=== PATIENT | female | born 1980 | race African-American/Black ===

== ENCOUNTER 2016-08-05 20:54 | Observation (INO) ==
[2016-08-05] MEDS ORDERED: NITROGLYCERIN 2% OINT 1 INCH/GM PACK TOP STA (22:06)
[2016-08-05] MEDS ORDERED: MORPHINE 2 MG/1 ML SYRINGE IV STA (22:06)
[2016-08-05] MEDS ORDERED: ALUM/MAG/SIMETH/LIDO VISC 1:1 30 ML BOTTLE PO STA (22:06)
[2016-08-05] MEDS ORDERED: ASPIRIN 325 MG TABLET PO STA (22:06)
[2016-08-05] MEDS ORDERED: ONDANSETRON 4 MG/2 ML VIAL IV STA (22:06)
[2016-08-05] MEDS ORDERED: METOPROLOL TARTRATE 25 MG TABLET PO STA (22:06)
--- NOTE | 2016-08-05 22:11 | EKG Report ---
Stationary ECG Study [facility] ER Test Date: 08/05/2016 9:09:16 PM Pat Name: MAGAN ARITA Department: Room: Gender: F [employer]: : 1980 Requested by: Moisés Graff Order Number: [id number] Jamshid MD: JACQUELINE REAVES Intervals [place] Rate: 99 P: 70 FL: 128 QRS: 31 QRSD: 88 T: 46 QT: 362 QTc: 418 Interpretive Statements SINUS RHYTHM Electronically Signed On 08-06-16 17:07:18 CDT by JACQUELINE REAVES [id number]
[2016-08-05] MEDS ORDERED: METOPROLOL TARTRATE 25 MG TABLET ONE (22:13)
[2016-08-05] MEDS ORDERED: NITROGLYCERIN 2% OINT 1 INCH/GM PACK TOP ONE (22:13)
[2016-08-05] MEDS ORDERED: MORPHINE 2 MG/1 ML SYRINGE ONE (22:14)
[2016-08-05] MEDS ORDERED: ONDANSETRON 4 MG/2 ML VIAL ONE (22:14)
[2016-08-05] MEDS ORDERED: ASPIRIN 325 MG TABLET ONE (22:14)
[2016-08-05] MEDS ORDERED: ALUM/MAG/SIMETH/LIDO VISC 1:1 30 ML BOTTLE PO ONE (22:14)
[2016-08-05 22:15] LABS: Basophils # 0.1 10*3/uL (0.0-0.2); Basophils % 0.5 % (0.0-0.8); Eosinophils # 0.2 10*3/uL (0.0-0.87); Eosinophils % 1.2 % (0.00-10.9); Hematocrit 40.9 VOL% (35.7-47.0); Hemoglobin 14.3 GM/DL (12.0-16.0); Immature Granulocytes % 0.7 %; Lymphocytes # 3.6 10*3/uL (1.4-4.0); Mean Corpuscular Hemoglobin 30 PG (27-34); Mean Corpuscular Volume 86.3 FL (87-102); Mean Platelet Volume 10.2 FL (9.6-12.0); Monocytes # 1.1 10*3/uL (0.11-0.8); Monocytes % 7.4 % (1.7-12.7); Neutrophils # 9.9 10*3/uL (1.4-7.4); Neutrophils % 66.2 % (38.7-73.9); Platelet Count 320 T/CUMM (130-400); Red Blood Count 4.74 MC/CUMM (3.8-5.5); Red Cell Distribution Width 14.9 % (9.3-17.3); White Blood Count 14.9 T/CUMM (4-12)
[2016-08-05 22:23] LABS: D-Dimer <= 0.5 MG/L FEU
[2016-08-05 22:26] LABS: Alanine Aminotransferase 42 U/L (13-56); Albumin 3.3 G/DL (3.4-5.0); Alkaline Phosphatase 66 U/L (45-117); Aspartate Amino Transferase 21 U/L (0-37); Bilirubin,Total < 0.39 MG/DL (0.2-1.0); Blood Urea Nitrogen 7 MG/DL (7-18); Calcium 9.1 MG/DL (8.5-10.1); Glucose 91 MG/DL (74-106); Osmolality,Calculated 276.4 MOS/KG (273-304); Potassium 3.5 MMOL/L (3.5-5.1); Sodium 140 MMOL/L (136-145); Total Protein 6.8 G/DL (6.4-8.3)
[2016-08-05 22:29] LABS: Barbiturates Screen,Urine Negative (Negative); Benzodiazepines Screen,Urine Negative (Negative); Cannabinoid Screen,Urine Negative (Negative); Magnesium 1.9 MG/DL (1.8-2.4); Opiate Screen,Urine Negative (Negative); Phencyclidine Screen,Urine Negative (Negative)
[2016-08-05 22:31] LABS: Apearance,Urine CLEAR (Clear); Bilirubin,Urine Negative (Negative); Blood, Urine Negative (Negative); Glucose,Urine (UA) Negative (Negative); Ketones,Urine Negative (Negative); Mucus,Urine Occasional /LPF (Occasional); Nitrite,Urine Negative (Negative); Protein,Urine Negative; Squamous Epithelial Cell,Urine Occasional /HPF (0-10); Urine Color Yellow (Yellow); Urine Urobilinogen < 2.0 EU/DL (0.2-1.0)
--- NOTE | 2016-08-05 23:24 | Emergency Department Note ---
James Viveros Brittany, am scribing for, and in the presence of, Moisés Jolley MD 22:48. Shola Viveros Charles R, MD, personally performed the services described in this documentation, ascribed by Kira Ramirez in my presence, and it is both accurate and complete 323 . Arrival - Arrival Chief Complaint: Chest Pain Stated Complaint: chest pain/nausea/possible ED Nursing Triage Note: C/C chest pain radiates to bilat arms and into upper back. Started a week ago. Mode of Arrival: Ambulatory Limitations: No Limitations Source: Patient Time Seen by Provider: 08/05/16 21:51 - History of Present Illness HPI Narrative: This is a 36 y/o black female,who presents to the ED with c/o CP which started earlier today. She states the pain has been on and off. She reports she has had CP in the past but this is more intense than the other times. She has taken a Baby ASA for the day. PT has no other complaints/pain in the ED at this time. Pt has a PMhx of Onset (ago): hour(s) (Started today) Consistency: intermittent Severity: moderate Allergies/Adverse Reactions: Allergies Allergy/AdvReac Type Severity Reaction Status Date / Time azithromycin [From Zithromax] Allergy SHORTNESS Verified 08/05/16 21:03 OF BREATH Home Medications: Home Medications Medication Instructions Recorded Confirmed Type Amlodipine/Valsartan [Exforge 1 each PO QAM #30 tablet 03/21/16 Rx 10-320 mg Tablet] Metoprolol Succinate Xl [Toprol Xl] 25 mg PO DAILY #30 tablet 03/21/16 Rx Review of System - Review of System 12 point system: reviewed and no additional remarkable complaints except as stated - Review of System Cardiovascular: Present: chest pain Medical,Surgical,& Family Hx - Medical History Cardio: History of: Hypertension Respiratory: History of: Asthma Musculoskeletal: History of: Musculoskeletal Problems (cyst in foot removed) - Surgical History HEENT Surgeries: Surgical HX of: Tonsilectomy & Adenoidectomy Reproductive Surgeries: Surgical HX of;: Section - Family History Family History: Reports;: Family Heart Disease (Dad from an AK at the age of 26), Family Hypertension - Social History Smoking Status: Current every day smoker Frequency of Alcohol Use: None Type of Drug Use: None Exam Vital Signs: Vital Signs Temperature 97.9 F 08/05/16 20:59 Pulse Rate 107 H 08/05/16 20:59 Respiratory Rate 20 08/05/16 21:50 Blood Pressure 161/106 08/05/16 20:59 O2 Sat by Pulse Oximetry 97 08/05/16 20:59 - General General appearance: alert, in no apparent distress - Head Head exam: Present: atraumatic, normocephalic, normal inspection - Eye Eye exam: Present: normal appearance, PERRL, EOMI. Absent: nystagmus, miosis, mydriasis - ENT ENT exam: Present: normal exam, normal oropharynx, mucous membranes moist, TM's normal bilaterally, normal external ear exam - Neck Neck exam: Present: normal inspection, full ROM, trachea midline. Absent: tenderness, meningismus, lymphadenopathy, thyromegaly - Chest Chest inspection: Present: symmetric chest wall rise, tenderness (Upper Chest tenderness). Absent: rash, abscess - Respiratory Respiratory exam: Present: normal lung sounds bilaterally, rales. Absent: respiratory distress, rhonchi, stridor, wheezes - Cardiovascular Cardiovascular exam: Present: regular rate, normal rhythm, normal heart sounds. Absent: murmur, rubs, gallop, clicks, JVD - Abdominal Exam Abdominal exam: Present: soft, normal bowel sounds. Absent: distention, tenderness, guarding, rebound, rigidity - Rectal Exam Rectal exam: Present: deferred - Extremities Exam Extremities exam: Present: full ROM, normal capillary refill, pedal edema (+1 Lower Extremity edema). Absent: tenderness, joint swelling, calf tenderness - Back Exam Back exam: Present: normal inspection, full ROM. Absent: tenderness, muscle spasm, rashes - Neurological Exam Neurological exam: Present: alert, oriented X3, CN II-XII intact. Absent: motor sensory deficit - Psychiatric Psychiatric exam: Present: normal affect, normal mood, agitated. Absent: anxious, flat affect, manic - Skin Skin exam: Present: warm, dry, intact, normal color. Absent: rash, cyanosis, diaphoresis, erythema, pallor, mottled Course - Consultations Consultation #1: I will contact the hospitalist and speak about admitting patient. Consultation #2: Hospitalist will admit patient Time: 23:24 Results - Labs CBC & BMP: 08/05/16 21:45 08/05/16 21:45 Disposition Clinical Impression: Chest pain, Hypertension Case discussed with: patient Disposition: Still a Patient Condition: Stable Time of Disposition: 23:24
[2016-08-05] MEDS ORDERED: ENOXAPARIN 100 MG/ML SYRINGE SUBCUT STA (23:29)
[2016-08-05] MEDS ORDERED: ENOXAPARIN 100 MG/ML SYRINGE SUBCUT ONE (23:32)
--- NOTE | 2016-08-06 00:31 | Hospitalist History & Physical ---
Assessment and Plan (1) Chest pain Status: Acute Current Visit: Yes (2) Hypertension Status: Acute Assessment and plan: Our plan for this patient will be admission to our service. Draw serial cardiac enzymes. Her EKG looks normal. Her chest x-rays appears normal. Given her bad family history I will consult cardiology. Patient is concerned that it is her heart given the family history. Recheck her lipid panel in the morning and reevaluate her CBC. Current Visit: Yes History of Present Illness Chief complaint: Chest pain History of present illness: Ms. Juarez is a 36 year old female with past medical history of hypertension with her normal state of health for the past few days. Patient has been developing shortness of breath and chest pain. She feels like it radiates to her back into her left arm. She feels nauseated and short winded when it comes on. Never before she experiences pain. She does relate a history of increased lower extremity edema that seem to resolve. She denies diaphoresis cough or a exertional component. Patient's father and his parents suffered early heart attacks and coronary disease and I was consulted to admit her through the emergency room. Home Medications Medication Instructions Recorded Confirmed Type Amlodipine/Valsartan [Exforge 1 each PO QAM #30 tablet 03/21/16 Rx 10-320 mg Tablet] Metoprolol Succinate Xl [Toprol Xl] 25 mg PO DAILY #30 tablet 03/21/16 Rx Allergies Allergy/AdvReac Type Severity Reaction Status Date / Time azithromycin [From Zithromax] Allergy SHORTNESS Verified 08/05/16 21:03 OF BREATH Medical,Surgical,& Family Hx - Medical History Cardio: History of: Hypertension Respiratory: History of: Asthma Musculoskeletal: History of: Musculoskeletal Problems (cyst in foot removed) - Surgical History HEENT Surgeries: Surgical HX of: Tonsilectomy & Adenoidectomy Reproductive Surgeries: Surgical HX of;: Section - Family History Family History: Reports;: Family Heart Disease (Dad from an ID at the age of 26), Family Hypertension - Social History Smoking Status: Current every day smoker Frequency of Alcohol Use: None Type of Drug Use: None 12 point system: reviewed and no additional remarkable complaints except as stated Exam - Constitutional Vitals: Period Temp Pulse Resp BP Sys/Gonzales Pulse Ox Last 24 Hr 97.9 F-97.9 F 81-107 16-20 141-161/89-106 97-98 - General General appearance: alert, in no apparent distress - Head Head exam: Present: atraumatic, normocephalic, normal inspection - Eye Eye exam: Present: normal appearance, PERRL, EOMI. - ENT ENT exam: Present: normal exam, normal oropharynx, mucous membranes moist, TM's normal bilaterally, normal external ear exam - Neck Neck exam: Present: normal inspection, full ROM, trachea midline. - Chest Chest inspection: Present: symmetric chest wall rise, tenderness (Upper Chest tenderness). - Respiratory Respiratory exam: Present: normal lung sounds bilaterally with occasional rales. - Cardiovascular Cardiovascular exam: Present: regular rate, normal rhythm, normal heart sounds. - Abdominal Exam Abdominal exam: Present: soft, normal bowel sounds. - Rectal Exam Rectal exam: Present: deferred - Extremities Exam Extremities exam: Present: full ROM, normal capillary refill, pedal edema (+1 Lower Extremity edema). - Back Exam Back exam: Present: normal inspection, full ROM. - Neurological Exam Neurological exam: Present: alert, oriented X3, CN II-XII intact. - Psychiatric Psychiatric exam: Present: normal affect, normal mood, agitated. - Skin Skin exam: Present: warm, dry, intact, normal color. Results - Labs CBC & BMP: 08/05/16 21:45 08/05/16 21:45
[2016-08-06] MEDS: MORPHINE 2 MG/1 ML SYRINGE IV PRN ×2 (01:26→07:50)
[2016-08-06 05:38] LABS: Basophils # 0.1 10*3/uL (0.0-0.2); Basophils % 0.7 % (0.0-0.8); Eosinophils # 0.3 10*3/uL (0.0-0.87); Eosinophils % 2.2 % (0.00-10.9); Hematocrit 37.6 VOL% (35.7-47.0); Hemoglobin 12.6 GM/DL (12.0-16.0); Immature Granulocytes % 0.7 %; Immature Granulocytes Absolute 0.09 #; Lymphocytes # 4.3 10*3/uL (1.4-4.0); Lymphocytes % 33.3 % (21.3-54.2); Mean Corpuscular HGB Conc 33.5 GM/DL (32-36); Mean Corpuscular Hemoglobin 29 PG (27-34); Mean Platelet Volume 10.4 FL (9.6-12.0); Monocytes # 0.9 10*3/uL (0.11-0.8); Monocytes % 7.1 % (1.7-12.7); Neutrophils # 7.2 10*3/uL (1.4-7.4); Platelet Count 309 T/CUMM (130-400); Red Blood Count 4.32 MC/CUMM (3.8-5.5); Red Cell Distribution Width 15.1 % (9.3-17.3); White Blood Count 12.9 T/CUMM (4-12)
[2016-08-06] MEDS: NITROGLYCERIN 2% OINT 1 INCH/GM PACK TOP SCH ×3 (06:16→18:11)
[2016-08-06 06:22] LABS: Risk Ratio 4.18; VLDL CHOLESTEROL 39.4 MG/DL
--- NOTE | 2016-08-06 07:07 | XRay Report ---
XR chest 2V Indication: Chest pain Comparison: Chest x-ray dated March 21, 2016 Technique: Frontal and lateral views of the chest. Findings: Heart size within normal limits. No focal consolidation, pleural effusion, or pneumothorax. Visualized osseous and surrounding soft tissue structures appear grossly unchanged. IMPRESSION: No acute cardiopulmonary process demonstrated. PROCEDURE INTERPRETED AT [facility] DEPARTMENT OF RADIOLOGY Final Report Signed by: Dr Edward Thapa
--- NOTE | 2016-08-06 08:06 | EKG Report ---
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
[2016-08-06] MEDS: ASPIRIN EC 325 MG TABLET PO SCH (08:32)
--- NOTE | 2016-08-06 09:04 | Cardiology Consult Note ---
Addendum entered and electronically signed by Emily Lynn NP 08/06/16 17:31 : Patient's cardiac stress test did not reveal any reversible ischemia and was low risk for future cardiac events. At this point, patient is stable for discharge home from a cardiac standpoint. Recommend that she be discharged home with gabapentin 100 mg 3 times daily 1 month, tramadol 50 mg twice daily 1 week and Tylenol 325 mg twice daily for 1 week for treatment of her chest wall pain. She will need to follow-up with her PCP in 1-2 weeks. She may follow with cardiology on an as-needed basis. Addendum entered and electronically signed by Emily Lynn NP 08/06/16 10:41 : Patient was seen and examined with Dr. Doyle. At this point we will treat her chest wall pain and we keep patient n.p.o. for cardiac stress testing today. Original Note: Assessment and Plan (1) Chest pain Status: Acute Assessment and plan: See plan of care listed below. Current Visit: Yes (2) Uncontrolled hypertension Status: Chronic Assessment and plan: See plan of care listed below. Current Visit: Yes (3) Family history of premature coronary artery disease Status: Chronic Assessment and plan: See plan of care listed below. Current Visit: Yes (4) Hypertriglyceridemia Status: Acute Assessment and plan: See plan of care listed below. Current Visit: Yes (5) Former smoker Status: Chronic Assessment and plan: See plan of care listed below. Current Visit: Yes (6) Orthopnea Status: Acute Assessment and plan: See plan of care listed below. Current Visit: Yes (7) Leukocytosis Status: Acute Assessment and plan: See plan of care listed below. Current Visit: Yes History of Present Illness - Data of Consult Patient: new to practice Consult date: 08/06/16 Requesting Physician: Enrike Mcintosh - Consult Narrative Reason for consult: chest pain History of present illness: Bindery Operator: New to cardiology (ramiro Doyle) PCP: Reports that she goes to a walk-in clinic on , unsure of which provider she sees. Ms. Juarez is a 36 year old female without known history of coronary artery disease, not routinely followed by cardiology. She presented to [facility] emergency department yesterday evening with complaints of chest pain. She has cardiac risk factors significant for uncontrolled hypertension, obesity, former smoker (reports that she quit 6 months ago, smoked 1/2 pack per day) and family history of premature coronary artery disease (father at age 26 from myocardial infarction). Patient reports a history of uncontrolled hypertension and confirms that her PCP set her up with [facility] later this month for assistance with her hypertension. Patient reports that she has never undergone cardiac workup. Denies heart catheterization or cardiac stress testing in the past. Patient was in her usual state of health until she experienced chest pain Thursday while laying in the bed. She describes this pain as a moderate midsternal sharp chest pain that radiates to her back and both arms. This is associated with shortness of breath and nausea. This lasted approximately 10 minutes and was relieved on its own. She is unable to identify any specific aggravating or alleviating factors. She reports that it is not worsened or brought on with exertion. She tells me that she is very active and attends the gym regularly. She reports that she never experiences any chest pain, heaviness or tightness while on the treadmill or on the bike. She also denies easy fatigability, exercise intolerance and dyspnea on exertion. She denies fever, chills, cough, abdominal pain, vomiting, melena, hematochezia and heart racing/palpitations. She reports that throughout the week she continued to have chest discomfort on and off, waxing and waning in intensity. 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 This concerned her, so she presented to emergency department for further evaluation. She received nitroglycerin upon arrival, she reports that this relieved her chest pain. Patient was admitted under hospitalist's service and housed on the telemetry unit. Cardiology has been consulted to further evaluate patient's chest discomfort. Patient was seen and examined on the telemetry unit. She is currently without chest pain, heaviness and tightness. Cardiac biomarkers have been negative 3. EKG is unremarkable. Upon exam, patient's chest is tender to light palpation. However, she does confirm that this is slightly different than the chest pain that she presented to the emergency department with. Chest x-ray does not reveal any acute cardiopulmonary processes. White blood cell count is mildly elevated at 12.9. No left shift noted. Patient is afebrile. Urinalysis does not reveal UTI. test was negative. Triglycerides are elevated on her lipid panel. Will initiate fish oil. Will keep patient n.p.o. and further discuss with Dr. Doyle. Further plan and recommendations to follow per Dr. Doyle. Assessment/plan: 1. CHEST PAIN - Patient has some typical and atypical features. Patient's chest pain does not have an exertional component. Troponin has been negative 3. EKG is unremarkable. However, patient's chest pain was relieved with nitroglycerin and patient has risk factors that include former smoker, obesity and family history of premature myocardial infarction (father at age 26 from myocardial infarction). At this point, I will keep patient n.p.o. and further discuss with Dr. Doyle regarding the need for invasive versus noninvasive cardiac workup. Further plan and addendum to follow per Dr. Doyle. 2. UNCONTROLLED HYPERTENSION - Suspect that patient is noncompliant with medications as patient's blood pressure is well controlled this morning after reinitiation of her home medications. Will continue current plan of care at this time and further adjust as needed throughout her hospitalization. 3. HYPERTRIGLYCERIDEMIA - I have added Fish Oil to patient's medication regimen. 4. FAMILY HISTORY OF PREMATURE CORONARY ARTERY DISEASE - Patient reports that her father at age 26 from myocardial infarction. 5. ORTHOPNEA - Will order echocardiogram to evaluate patient's LV function. 6. LEUKOCYTOSIS - White blood cell count is only mildly elevated without left shift. Patient is afebrile. Chest x-ray does not reveal any acute cardiopulmonary processes. Urinalysis was negative for UTI. Will defer further management of this to attending. 7. FORMER SMOKER - Patient reports that she quit smoking approximately 6 months ago. Smoked one half pack per day. Further plan and addendum to follow per Dr. Doyle. CC: Ana Roblero MD - Home Medications and Allergies Home Medications: Home Medications Medication Instructions Recorded Confirmed Type Amlodipine/Valsartan [Exforge 1 each PO QAM #30 tablet 03/21/16 08/06/16 Rx 10-320 mg Tablet] Metoprolol Succinate Xl [Toprol Xl] 25 mg PO DAILY #30 tablet 03/21/16 08/06/16 Rx Allergies/Adverse Reactions: Allergies Allergy/AdvReac Type Severity Reaction Status Date / Time azithromycin [From Zithromax] Allergy SHORTNESS Verified 08/05/16 21:03 OF BREATH - Constitutional Constitutional: Present: weakness. Absent: chills, fever(s), frequent falls - Cardiovascular Cardiovascular: Present: chest pain at rest, dyspnea, edema, radiating jaw, neck or arm pain, orthopnea. Absent: chest pain with activity, claudication, diaphoresis, dyspnea on exertion, lightheadedness, palpitations - Respiratory Respiratory: Present: dyspnea. Absent: cough, hemoptysis, dyspnea on exertion, wheezing, snoring, pain on inspiration, change in phlegm color - Gastrointestinal Gastrointestinal: Present: nausea. Absent: abdominal pain, change in bowel habits, coffee ground emesis, hematemesis, hematochezia, loose stools, melena, vomiting - Neurological Neurological: Absent: abnormal gait, abnormal speech, behavioral changes, dizziness, focal weakness, frequent falls, syncope - Hematologic/Lymphatic Hematologic/Lymphatic: Absent: easy bleeding, easy bruising, lymphadenopathy Medical,Surgical,& Family Hx - Medical History Cardio: History of: Hypertension Respiratory: History of: Asthma Musculoskeletal: History of: Musculoskeletal Problems (cyst in foot removed) - Surgical History HEENT Surgeries: Surgical HX of: Tonsilectomy & Adenoidectomy Reproductive Surgeries: Surgical HX of;: Section, Gynecologic Surgery - Family History Family History: Reports;: Family Heart Disease (Dad from an [facility] at the age of 26), Family Hypertension (father mother) Comment Only: Family Cancer (father colon mother breast), Family Diabetes ( mother and father) - Social History Smoking Status: Former smoker Frequency of Alcohol Use: None Type of Drug Use: None Physical Examination Vital Signs Temp Pulse Resp BP Pulse Ox 97.9 F 106 H 16 161/106 97 08/05/16 20:59 08/05/16 20:59 08/05/16 20:59 08/05/16 20:59 08/05/16 20:59 Other: General: Appears well with no apparent distress. Pleasant and cooperative. Appears comfortable. Obese. HEENT: PERRL, normocephalic, atraumatic. Mucous membranes moist. No jaundice noted. Conjunctiva moist and clear, sclerae anicteric Neck: No JVD/HJR, no thyromegaly or lymphadenopathy noted. No carotid bruit appreciated Cardiac: Regular rate and rhythm. No murmur rub or gallop. Lungs: Clear to auscultation without accessory muscle use to assist the respiratory pattern. Not requiring oxygen. Abdomen: Soft, bowel sounds normoactive. Nontender and nondistended. No abdominal bruit or thrill noted. No masses noted. Extremities: No clubbing, cyanosis noted. No edema noted. Upper extremity pulses 2+. Lower extremity pulses 2+. Capillary refill less than 3 seconds. Skin: No unusual lesions or rashes. No skin breakdown appreciated. Neuro: Awake, alert and oriented 3. Moves all extremities well without hemiparesis or paralysis. No essential tremor is appreciated. Result/EKG - Labs CBC & BMP: 08/06/16 04:48 08/05/16 21:45 Lab Results: I have reviewed the past 24 hour labs Labs: Laboratory Results - last 24 hr 08/05/16 08/05/16 08/05/16 21:45 21:45 21:45 WBC 14.9 H RBC 4.74 Hgb 14.3 Hct 40.9 MCV 86.3 L MCH 30 MCHC 35.0 RDW 14.9 Plt Count 320 MPV 10.2 Neut % (Auto) 66.2 Lymph % (Auto) 24.0 Mills % (Auto) 7.4 Eos % (Auto) 1.2 Baso % (Auto) 0.5 Neut # (Auto) 9.9 H Lymph # (Auto) 3.6 Mills # (Auto) 1.1 H Eos # (Auto) 0.2 Baso # (Auto) 0.1 Immature Gran % 0.7 Nucleated RBC % 0.0 Immature Gran # 0.10 Nucleated RBCs # 0.00 INR PT Patient/Control Mix D-Dimer, Quantitative Sodium 140 Potassium 3.5 Chloride 104 Carbon Dioxide 24 Anion Gap 15.5 H BUN 7 Creatinine 0.70 GFR Calculation 153 BUN/Creatinine Ratio 10.00 Glucose 91 Calculated Osmolality 276.4 Calcium 9.1 Magnesium Total Bilirubin < 0.39 AST 21 ALT 42 Alkaline Phosphatase 66 Troponin I B-Natriuretic Peptide Total Protein 6.8 Albumin 3.3 L Globulin 3.5 Albumin/Globulin Ratio 0.9 L Triglycerides Cholesterol LDL Cholesterol VLDL Cholesterol HDL Cholesterol Heart Disease Risk Ratio Lipase Urine Color Urine Appearance Urine pH Ur Specific Niland Urine Protein Urine Glucose (UA) Urine Ketones Urine Blood Urine Nitrate Urine Bilirubin Urine Urobilinogen Urine Leukocytes Ur Squamous Epith Cells Urine Mucus Ur Culture Indicated? Urine Test Negative Urine Opiates Screen Ur Barbiturates Screen Ur Phencyclidine Scrn U Amphetamine/Methamph U Benzodiazepines Scrn U Cocaine Metab Screen U Cannabinoids Screen 08/05/16 08/05/16 08/05/16 21:45 21:45 21:45 WBC RBC Hgb Hct MCV MCH MCHC RDW Plt Count MPV Neut % (Auto) Lymph % (Auto) Mills % (Auto) Eos % (Auto) Baso % (Auto) Neut # (Auto) Lymph # (Auto) Mills # (Auto) Eos # (Auto) Baso # (Auto) Immature Gran % Nucleated RBC % Immature Gran # Nucleated RBCs # INR 1.0 PT Patient/Control Mix 10.0 D-Dimer, Quantitative <= 0.5 Sodium Potassium Chloride Carbon Dioxide Anion Gap BUN Creatinine GFR Calculation BUN/Creatinine Ratio Glucose Calculated Osmolality Calcium Magnesium Total Bilirubin AST ALT Alkaline Phosphatase Troponin I < 0.015 B-Natriuretic Peptide Total Protein Albumin Globulin Albumin/Globulin Ratio Triglycerides Cholesterol LDL Cholesterol VLDL Cholesterol HDL Cholesterol Heart Disease Risk Ratio Lipase Urine Color Yellow Urine Appearance Clear Urine pH 6.0 Ur Specific Niland 1.010 Urine Protein Negative Urine Glucose (UA) Negative Urine Ketones Negative Urine Blood Negative Urine Nitrate Negative Urine Bilirubin Negative Urine Urobilinogen < 2.0 H Urine Leukocytes Negative Ur Squamous Epith Cells Occasional Urine Mucus Occasional Ur Culture Indicated? Not indicated Urine Test Urine Opiates Screen Ur Barbiturates Screen Ur Phencyclidine Scrn U Amphetamine/Methamph U Benzodiazepines Scrn U Cocaine Metab Screen U Cannabinoids Screen 08/05/16 08/05/16 08/05/16 21:45 21:45 21:45 WBC RBC Hgb Hct MCV MCH MCHC RDW Plt Count MPV Neut % (Auto) Lymph % (Auto) Mills % (Auto) Eos % (Auto) Baso % (Auto) Neut # (Auto) Lymph # (Auto) Mills # (Auto) Eos # (Auto) Baso # (Auto) Immature Gran % Nucleated RBC % Immature Gran # Nucleated RBCs # INR PT Patient/Control Mix D-Dimer, Quantitative Sodium Potassium Chloride Carbon Dioxide Anion Gap BUN Creatinine GFR Calculation BUN/Creatinine Ratio Glucose Calculated Osmolality Calcium Magnesium 1.9 Total Bilirubin AST ALT Alkaline Phosphatase Troponin I B-Natriuretic Peptide 37 Total Protein Albumin Globulin Albumin/Globulin Ratio Triglycerides Cholesterol LDL Cholesterol VLDL Cholesterol HDL Cholesterol Heart Disease Risk Ratio Lipase 74.0 Urine Color Urine Appearance Urine pH Ur Specific Niland Urine Protein Urine Glucose (UA) Urine Ketones Urine Blood Urine Nitrate Urine Bilirubin Urine Urobilinogen Urine Leukocytes Ur Squamous Epith Cells Urine Mucus Ur Culture Indicated? Urine Test Urine Opiates Screen Negative Ur Barbiturates Screen Negative Ur Phencyclidine Scrn Negative U Amphetamine/Methamph Negative U Benzodiazepines Scrn Negative U Cocaine Metab Screen Negative U Cannabinoids Screen Negative 08/06/16 08/06/16 08/06/16 01:17 04:48 04:48 WBC 12.9 H RBC 4.32 Hgb 12.6 Hct 37.6 MCV 87.0 MCH 29 MCHC 33.5 RDW 15.1 Plt Count 309 MPV 10.4 Neut % (Auto) 56.0 Lymph % (Auto) 33.3 Mills % (Auto) 7.1 Eos % (Auto) 2.2 Baso % (Auto) 0.7 Neut # (Auto) 7.2 Lymph # (Auto) 4.3 H Mills # (Auto) 0.9 H Eos # (Auto) 0.3 Baso # (Auto) 0.1 Immature Gran % 0.7 Nucleated RBC % 0.0 Immature Gran # 0.09 Nucleated RBCs # 0.00 INR PT Patient/Control Mix D-Dimer, Quantitative Sodium Potassium Chloride Carbon Dioxide Anion Gap BUN Creatinine GFR Calculation BUN/Creatinine Ratio Glucose Calculated Osmolality Calcium Magnesium Total Bilirubin AST ALT Alkaline Phosphatase Troponin I < 0.015 < 0.015 B-Natriuretic Peptide Total Protein Albumin Globulin Albumin/Globulin Ratio Triglycerides Cholesterol LDL Cholesterol VLDL Cholesterol HDL Cholesterol Heart Disease Risk Ratio Lipase Urine Color Urine Appearance Urine pH Ur Specific Niland Urine Protein Urine Glucose (UA) Urine Ketones Urine Blood Urine Nitrate Urine Bilirubin Urine Urobilinogen Urine Leukocytes Ur Squamous Epith Cells Urine Mucus Ur Culture Indicated? Urine Test Urine Opiates Screen Ur Barbiturates Screen Ur Phencyclidine Scrn U Amphetamine/Methamph U Benzodiazepines Scrn U Cocaine Metab Screen U Cannabinoids Screen 08/06/16 04:48 WBC RBC Hgb Hct MCV MCH MCHC RDW Plt Count MPV Neut % (Auto) Lymph % (Auto) Mills % (Auto) Eos % (Auto) Baso % (Auto) Neut # (Auto) Lymph # (Auto) Mills # (Auto) Eos # (Auto) Baso # (Auto) Immature Gran % Nucleated RBC % Immature Gran # Nucleated RBCs # INR PT Patient/Control Mix D-Dimer, Quantitative Sodium Potassium Chloride Carbon Dioxide Anion Gap BUN Creatinine GFR Calculation BUN/Creatinine Ratio Glucose Calculated Osmolality Calcium Magnesium Total Bilirubin AST ALT Alkaline Phosphatase Troponin I B-Natriuretic Peptide Total Protein Albumin Globulin Albumin/Globulin Ratio Triglycerides 197 H Cholesterol 163 LDL Cholesterol 103.0 VLDL Cholesterol 39.4 HDL Cholesterol 39 L Heart Disease Risk Ratio 4.18 Lipase Urine Color Urine Appearance Urine pH Ur Specific Niland Urine Protein Urine Glucose (UA) Urine Ketones Urine Blood Urine Nitrate Urine Bilirubin Urine Urobilinogen Urine Leukocytes Ur Squamous Epith Cells Urine Mucus Ur Culture Indicated? Urine Test Urine Opiates Screen Ur Barbiturates Screen Ur Phencyclidine Scrn U Amphetamine/Methamph U Benzodiazepines Scrn U Cocaine Metab Screen U Cannabinoids Screen - EKG EKG results: interpreted by me, sinus rhythm Quality Measures - Stroke Symptom Onset Unknown: No
[2016-08-06] MEDS: amLODIPine 10 MG TABLET PO SCH (09:31)
[2016-08-06] MEDS: METOPROLOL SUCCINATE XL 25 MG TABLET PO SCH (09:32)
[2016-08-06] MEDS: OMEGA 3 ACID ETHYL ESTERS 1 GM CAPSULE PO SCH ×2 (09:32→21:40)
[2016-08-06] MEDS: VALSARTAN 160 MG TABLET PO SCH (09:35)
[2016-08-06] MEDS: ONDANSETRON 4 MG/2 ML VIAL IV PRN ×2 (10:00→22:03)
[2016-08-06] MEDS ORDERED: REGADENOSON 0.4 MG/5 ML SYRINGE IV ONE (11:51)
[2016-08-06] MEDS: NAPROXEN 250 MG TABLET PO SCH ×2 (12:31→22:03)
[2016-08-06] MEDS: ACETAMINOPHEN 325 MG TABLET PO SCH ×2 (12:31→21:40)
--- NOTE | 2016-08-06 13:52 | Event Note ---
Patient underwent cardiac stress testing. Patient tolerated well without any significant ST changes. Patient was unable to reach target heart rate and Bharath protocol was then transitioned to Lexiscan protocol. Patient had mild exercise intolerance with dyspnea on exertion. She did not experience any chest pain, heaviness or tightness. She was without cardiac arrhythmias. Patient is on to nuclear medicine for nuclear portion of test. Dr. Doyle to read, interpret and advise.
[2016-08-06] MEDS: GABAPENTIN 100 MG CAPSULE PO SCH ×2 (14:51→21:39)
--- NOTE | 2016-08-06 15:15 | Hospitalist Progress Note ---
Hospitalist: Subjective Interval history: Patient reports her shortness of breath is unchanged. She denies any chest pain at this time. She does report a dry cough. She reports nausea but no emesis. Last bowel movement was yesterday she denies any melena or bright red blood per rectum. Exam - Constitutional Vitals: Period Temp Pulse Resp BP Sys/Gonzales Pulse Ox Last 24 Hr 97.6 F-98.7 F 77-107 16-20 110-161/59-106 95-98 Exam: A and O 3 Regular rate and rhythm no murmurs rubs or gallops Clear to auscultation bilaterally diminished at the bases nonlabored breathing noted Soft nontender nondistended positive bowel sounds no organomegaly or masses appreciated Extremity exam is warm and well-perfused no clubbing cyanosis or edema Results - Labs CBC & BMP: 08/06/16 04:48 08/05/16 21:45 - Impressions (1) Chest pain-patient with several risk factors for coronary artery disease Status: Acute Assessment and plan: - Continue medical management for now. (Nitro topically, Lovenox, metoprolol, aspirin and omega-3 ) - follow-up results of stress test. Cardiology follow-up - Pain control with naproxen, Neurontin and tramadol Current Visit: Yes (2) Uncontrolled hypertension-now controlled Status: Chronic Assessment and plan: Continue current medical management. (Metoprolol, Nitropatch, Diovan and Norvasc ) Current Visit: Yes (3) Family history of premature coronary artery disease Status: Chronic Assessment and plan: Current Visit: Yes (4) Hypertriglyceridemia Status: Acute Assessment and plan: -Continue omega-3 Current Visit: Yes (5) Former smoker Status: Chronic Assessment and plan: Recommend continued smoking cessation Current Visit: Yes (6) Orthopnea Status: Acute Assessment and plan: See plan of care listed below. Current Visit: Yes (7) Leukocytosis-possibly reactive-improving Status: Acute Assessment and plan: Follow labs Current Visit: Yes Disposal pending stress test results and cardiology recommendation. Discussed with patient and nurse and all questions answered Quality Measures - Stroke Symptom Onset Unknown: No
[2016-08-06] MEDS ORDERED: ENOXAPARIN 40 MG/0.4 ML SYRINGE SUBCUT SCH (21:00)
--- NOTE | 2016-08-06 21:31 | ECHO Report ---
Tania Juarez Exam Date: 08/06/2016 09:20 Referring Physician: Technologist: Marry Masters RDCS Age: 36 Ht (in): 63 Wt (lb): 231 Gender: F Exam Location: [facility] Echo Indications: Essential (primary) hypertension, Chest pain, unspecified, Weakness, Dyspnea, unspecified, Leukocytosis, Orthopenea BP: 126 / 79 HR: 72 Rhythm: Sinus Technical Quality: Good IMPRESSIONS Mild left ventricular hypertrophy. Left ventricular ejection fraction is estimated at 55 %. Trace tricuspid valve regurgitation. Tricuspid regurgitation velocities suggest a PAP of 38 mmHg. MEASUREMENTS (Male / Female) Normal Values 2D ECHO LV Diastolic Diameter PLAX 4.8 cm 4.2 - 5.9 / 3.9 - 5.3 cm LV Systolic Diameter PLAX 3.7 cm LV Fractional Shortening PLAX 22.3 % IVS Diastolic Thickness 1.1 cm 0.6 - 1.0 / 0.6 - 0.9 cm LVPW Diastolic Thickness 1.1 cm 0.6 - 1.0 / 0.6 - 0.9 cm RV Internal Dim ED PLAX 3.0 cm Aortic Root Diameter 2.7 cm LA Systolic Diameter LX 3.8 cm 3.0 - 4.0 / 2.7 - 3.8 cm DOPPLER TR Peak Velocity 263.0 cm/s TR Peak Gradient 27.7 mmHg FINDINGS Left Ventricle Normal left ventricular cavity size. Mild left ventricular hypertrophy. Left ventricular ejection fraction is estimated at 55 %. Right Ventricle The right ventricle is normal in size and function. Right Atrium The right atrium is normal in size. Left Atrium The left atrium is normal in size. Mitral Valve Morphologically normal mitral valve without significant stenosis or prolapse. There is no mitral regurgitation. Aortic Valve Morphologically normal aortic valve without significant sclerosis or stenosis. There is no aortic regurgitation. Tricuspid Valve Morphologically normal tricuspid valve. Trace tricuspid valve regurgitation. Tricuspid regurgitation velocities suggest a PAP of 38 mmHg. Pulmonic Valve Morphologically normal pulmonic valve without significant stenosis. There is no pulmonic regurgitation. Pericardium Normal pericardium without effusion. Aorta Normal ascending aorta dimension. Tomer Doyle MD (Electronically Signed) Final Date: 06 August 2016 21:18
[2016-08-06] MEDS: traMADol 50 MG TABLET PO SCH (21:40)
[2016-08-07] MEDS: MORPHINE 2 MG/1 ML SYRINGE IV PRN (00:19)
[2016-08-07] MEDS: NITROGLYCERIN 2% OINT 1 INCH/GM PACK TOP SCH (01:12)
[2016-08-07 05:53] LABS: Basophils # 0.1 10*3/uL (0.0-0.2); Basophils % 0.7 % (0.0-0.8); Eosinophils # 0.3 10*3/uL (0.0-0.87); Eosinophils % 2.9 % (0.00-10.9); Hematocrit 39.2 VOL% (35.7-47.0); Hemoglobin 12.8 GM/DL (12.0-16.0); Immature Granulocytes % 0.4 %; Immature Granulocytes Absolute 0.04 #; Lymphocytes # 3.4 10*3/uL (1.4-4.0); Lymphocytes % 34.9 % (21.3-54.2); Mean Corpuscular HGB Conc 32.7 GM/DL (32-36); Mean Corpuscular Hemoglobin 29 PG (27-34); Mean Corpuscular Volume 89.1 FL (87-102); Mean Platelet Volume 10.4 FL (9.6-12.0); Monocytes # 0.9 10*3/uL (0.11-0.8); Monocytes % 9.5 % (1.7-12.7); Neutrophils % 51.6 % (38.7-73.9); Platelet Count 301 T/CUMM (130-400); Red Cell Distribution Width 15.1 % (9.3-17.3); White Blood Count 9.7 T/CUMM (4-12)
[2016-08-07 06:25] LABS: Calcium 8.7 MG/DL (8.5-10.1); Osmolality,Calculated 288.8 MOS/KG (273-304); Potassium 4.2 MMOL/L (3.5-5.1)
--- NOTE | 2016-08-07 07:19 | Hospitalist Progress Note ---
Hospitalist: Subjective Interval history: Pt states chest pain is better. Mild nausea persists but she was able to eat all of her breakfast. She denies any abd pain. No dysuria or hematuria. No fever. No cough. No light headedness or dizziness. No fever. No diarrhea or constipation. Exam - Constitutional Vitals: Period Temp Pulse Resp BP Sys/Gonzales Pulse Ox Last 24 Hr 96.0 F-98.7 F 78-89 18-20 123-156/73-90 94-941 Exam: A and O 3 Regular rate and rhythm no murmurs rubs or gallops Clear to auscultation bilaterally diminished at the bases nonlabored breathing noted Soft nontender nondistended positive bowel sounds no organomegaly or masses appreciated Extremity exam is warm and well-perfused no clubbing cyanosis or edema Results - Labs CBC & BMP: 08/07/16 04:27 08/07/16 04:27 Labs: 2D ECHO: IMPRESSIONS Mild left ventricular hypertrophy. Left ventricular ejection fraction is estimated at 55 %. Trace tricuspid valve regurgitation. Tricuspid regurgitation velocities suggest a PAP of 38 mmHg. - Impressions (1) Chest pain-patient with several risk factors for coronary artery disease. Cardiology feels this is likely chest wall pain/costochondritis Status: Acute Assessment and plan: - Continue medical management for now - Reportedly stress test is negative. Cardiology reportedly has cleared for discharge - Pain control with naproxen, Neurontin and tramadol Current Visit: Yes (2) Uncontrolled hypertension-now controlled Status: Chronic Assessment and plan: Continue current medical management. Current Visit: Yes (3) Family history of premature coronary artery disease Status: Chronic Assessment and plan: Current Visit: Yes (4) Hypertriglyceridemia Status: Acute Assessment and plan: -Continue omega-3 Current Visit: Yes (5) Former smoker Status: Chronic Assessment and plan: Recommend continued smoking cessation Current Visit: Yes (6) Orthopnea Status: Acute Assessment and plan: See plan of care listed below. Current Visit: Yes (7) Leukocytosis-possibly reactive-improving Status: Acute Assessment and plan: Follow labs Current Visit: Yes Will order outpt RUQ U/S to rule out GB disease and PCP and follow-up. Will dc. See orders. Quality Measures - Stroke Symptom Onset Unknown: No Specialty Discharge - Follow Up or Referrals
--- NOTE | 2016-08-07 07:51 | Nuclear Medicine Report ---
TREADMILL SESTAMIBI STUDY LEXISCAN REFERRING PHYSICIAN: Enrike Mcintosh MD HISTORY: A 36-year-old woman with atypical left chest pain. Evaluate for evidence of ischemia. Stress test with Cardiolite using Lexiscan for the stress. The patient was initially injected with 10 mCi of technetium Cardiolite. A rest study is done. The patient then walked to the treadmill, could not walk very far and did not have a very good heart rate so Lexiscan 0.4 mg IV was given. Immediately after the Lexiscan, the patient was given 30 mCi of technetium Cardiolite. On the post exercise images, there was no increased lung uptake, cardiac size are normal and RV uptake of Cardiolite was normal. In THOMPSON view, there is inferior thinning, in the [place] view there is inferoseptal thinning in extreme [place] view, there is upper anterior thinning, in extreme [place]OMPSON view there is inferoposterior thinning thought to be due to RV, scar tissue, and diaphragmatic attenuation, respectively. On the delayed images, there was normal washout. The areas of thinning did not appear to redistribute. The reconstructed views agree with these findings. Gated SPECT images reveal normal global systolic function. Overall ejection fraction at least 55% to 65%. IMPRESSION: 1. NORMAL LOW LEVEL STRESS/LEXISCAN CARDIOLITE STUDY. THIS WILL GO AGAINST MAJOR AREA OF ISCHEMIA BEING PRESENT AT WORKLOAD EQUIVALENT TO 5-6 METS OF DEEPAK PROTOCOL. 2. THERE WERE AREAS OF THINNING, THOUGHT TO BE DUE TO BREAST AND DIAPHRAGMATIC ATTENUATION DESCRIBED ABOVE. 3. THE GATED SPECT IMAGES REVEALED NORMAL GLOBAL SYSTOLIC FUNCTION. OVERALL EJECTION FRACTION IS AT LEAST 65%. 4. NO PRIOR STUDIES AVAILABLE FOR COMPARISON. 5. ON THE EXERCISE STRESS TEST, THE PATIENT HAD NO CHEST PAIN AND THERE ARE NO ST CHANGES. EXERCISE AND LEXISCAN INDEED ARE IDENTICAL. GIVEN THE RESULTS OF THE STUDY, I WOULD SUGGEST THE PATIENT'S LEFT CHEST PAIN IS NOT CARDIAC. IT IS NOT DUE TO ISCHEMIA. IT IS PROBABLY MUSCULOSKELETAL. SHE WILL BE TREATED FOR MUSCULOSKELETAL PAIN. SHE WILL BE ALLOWED TO BE DISCHARGED WITH FOLLOWUP. SHE WILL FOLLOW UP WITH HER PRIMARY CARE PHYSICIAN. CARDIOLOGY CAN SEE HER ON AN NEEDED BASIS. Procedure performed and interpreted at [facility] Department of Radiology. CC: [facility] Enrike Mcintosh MD MTDD
[2016-08-07] MEDS: OMEGA 3 ACID ETHYL ESTERS 1 GM CAPSULE PO SCH (08:08)
[2016-08-07 08:09] VITALS: BP 143/75
[2016-08-07] MEDS: ACETAMINOPHEN 325 MG TABLET PO SCH (08:09)
[2016-08-07] MEDS: GABAPENTIN 100 MG CAPSULE PO SCH (08:09)
[2016-08-07] MEDS: ASPIRIN EC 325 MG TABLET PO SCH (08:09)
[2016-08-07] MEDS: VALSARTAN 160 MG TABLET PO SCH (08:09)
[2016-08-07] MEDS: METOPROLOL SUCCINATE XL 25 MG TABLET PO SCH (08:09)
[2016-08-07] MEDS: traMADol 50 MG TABLET PO SCH (08:09)
[2016-08-07] MEDS: amLODIPine 10 MG TABLET PO SCH (08:09)
--- NOTE | 2016-08-07 09:11 | Cardiology Progress Note ---
Assessment and Plan (1) Chest pain Status: Acute Assessment and plan: See plan of care listed below. Current Visit: Yes (2) Uncontrolled hypertension Status: Chronic Assessment and plan: See plan of care listed below. Current Visit: Yes (3) Family history of premature coronary artery disease Status: Chronic Assessment and plan: See plan of care listed below. Current Visit: Yes (4) Hypertriglyceridemia Status: Acute Assessment and plan: See plan of care listed below. Current Visit: Yes (5) Former smoker Status: Chronic Assessment and plan: See plan of care listed below. Current Visit: Yes (6) Orthopnea Status: Acute Assessment and plan: See plan of care listed below. Current Visit: Yes (7) Leukocytosis Status: Resolved Assessment and plan: See plan of care listed below. 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 SUMMARY : Ms. Juarez, 36-year-old -Citizen Of [place] female was admitted to [facility] with atypical chest pain. She has a past medical history of uncontrolled hypertension, obesity and former smoker ( reports that she quit 6 months ago, smoked one half pack per day). She does have a family history of premature coronary artery disease and (father at age 26 from myocardial infarction). Patient underwent nuclear cardiac stress testing yesterday with the following impressions noted: IMPRESSION: 1. NORMAL LOW LEVEL STRESS/LEXISCAN CARDIOLITE STUDY. THIS WILL GO AGAINST MAJOR AREA OF ISCHEMIA BEING PRESENT AT WORKLOAD EQUIVALENT TO 5-6 METS OF DEEPAK PROTOCOL. 2. THERE WERE AREAS OF THINNING, THOUGHT TO BE DUE TO BREAST AND DIAPHRAGMATIC ATTENUATION DESCRIBED ABOVE. 3. THE GATED SPECT IMAGES REVEALED NORMAL GLOBAL SYSTOLIC FUNCTION. OVERALL EJECTION FRACTION IS AT LEAST 65%. 4. NO PRIOR STUDIES AVAILABLE FOR COMPARISON. 5. ON THE EXERCISE STRESS TEST, THE PATIENT HAD NO CHEST PAIN AND THERE ARE NO ST CHANGES. EXERCISE AND LEXISCAN INDEED ARE IDENTICAL. GIVEN THE RESULTS OF THE STUDY, I WOULD SUGGEST THE PATIENT'S LEFT CHEST PAIN IS NOT CARDIAC. IT IS NOT DUE TO ISCHEMIA. IT IS PROBABLY MUSCULOSKELETAL. SHE WILL BE TREATED FOR MUSCULOSKELETAL PAIN. SHE WILL BE ALLOWED TO BE DISCHARGED. She also had echocardiogram which revealed left ventricular ejection fraction of 55%. Trace TR and PA P of 38 mmHg. Patient was seen and examined on the telemetry unit this morning. She did well overnight and has been without chest pain, heaviness and tightness. Labs have been reviewed. Vital signs are stable. Blood pressure well controlled. She is stable for discharge from a cardiac standpoint. Recommend that she be discharged home with gabapentin 100 mg 3 times daily 1 month, tramadol 50 mg twice daily 1 week and Tylenol 325 mg twice daily for 1 week for treatment of her chest wall pain. She will need to follow-up with her PCP in 1-2 weeks. She may follow with cardiology on an as -needed basis. Assessment/plan: 1. ATYPICAL CHEST PAIN - Patient underwent cardiac stress testing yesterday which did not reveal any reversible ischemia. Patient is stable for discharge home from a cardiac standpoint. We recommend that patient be discharged home with gabapentin 100 mg 3 times daily 1 month, tramadol 50 mg twice daily 1 week and Tylenol 325 mg twice daily for 1 week for treatment of her chest wall pain. Patient will need to follow-up with her PCP in 1-2 weeks and cardiology on an as-needed basis. 2. HYPERTENSION - Now well controlled. Continue current plan of care. 3. HYPERTRIGLYCERIDEMIA - Continue current plan of care with Fish Oil. Patient will need fasting lipid panel with her PCP. 4. FAMILY HISTORY OF PREMATURE CORONARY ARTERY DISEASE - Patient reports that her father at age 26 from myocardial infarction. 5. ORTHOPNEA - Echocardiogram revealed normal LV function, ejection fraction of 55%. No diastolic dysfunction noted. 6. LEUKOCYTOSIS - Resolved. 7. FORMER SMOKER - Patient reports that she quit smoking approximately 6 months ago. Smoked one half pack per day. Further plan and addendum to follow per Dr. Doyle. Exam (Progress Note) - Constitutional Vitals: Period Temp Pulse Resp BP Sys/Gonzales Pulse Ox Last 24 Hr 96.0 F-98.7 F 73-89 18-20 123-156/73-90 [id number] Exam: General: Appears well with no apparent distress. Pleasant and cooperative. Appears comfortable. Obese. HEENT: PERRL, normocephalic, atraumatic. Mucous membranes moist. No jaundice noted. Conjunctiva moist and clear, sclerae anicteric Neck: No JVD/HJR, no thyromegaly or lymphadenopathy noted. No carotid bruit appreciated Cardiac: Regular rate and rhythm. Lungs: Clear to auscultation without accessory muscle use to assist the respiratory pattern. Not requiring oxygen. Abdomen: Soft, bowel sounds normoactive. Nontender and nondistended. No abdominal bruit or thrill noted. No masses noted. Extremities: No clubbing, cyanosis noted. No edema noted. Upper extremity pulses 2+. Lower extremity pulses 2+. Capillary refill less than 3 seconds. Skin: No unusual lesions or rashes. No skin breakdown appreciated. Neuro: Awake, alert and oriented 3. Moves all extremities well without hemiparesis or paralysis. No essential tremor is appreciated. Result/EKG - Labs CBC & BMP: 08/07/16 04:27 08/07/16 04:27 Lab Results: I have reviewed the past 24 hour labs Labs: Laboratory Results - last 24 hr 08/07/16 08/07/16 04:27 04:27 WBC 9.7 RBC 4.40 Hgb 12.8 Hct 39.2 MCV 89.1 MCH 29 MCHC 32.7 RDW 15.1 Plt Count 301 MPV 10.4 Neut % (Auto) 51.6 Lymph % (Auto) 34.9 [place] % (Auto) 9.5 Eos % (Auto) 2.9 Baso % (Auto) 0.7 Neut # (Auto) 5.0 Lymph # (Auto) 3.4 [place] # (Auto) 0.9 H Eos # (Auto) 0.3 Baso # (Auto) 0.1 Immature Gran % 0.4 Nucleated RBC % 0.0 Immature Gran # 0.04 Nucleated RBCs # 0.00 Sodium 144 Potassium 4.2 Chloride 107 Carbon Dioxide 28 Anion Gap 13.2 BUN 15 Creatinine 0.60 GFR Calculation 163 BUN/Creatinine Ratio 25.00 H Glucose 126 H Calculated Osmolality 288.8 Calcium 8.7 Magnesium 2.0 Quality Measures - Stroke Symptom Onset Unknown: No Specialty Discharge - Follow Up or Referrals
[2016-08-07] MEDS: ONDANSETRON 4 MG/2 ML VIAL IV PRN (10:10)
--- NOTE | 2016-08-07 10:12 | Discharge Summary ---
<Paul Rodriguez - Last Filed: 08/07/16 09:38> Hospital Course - Hospital Course Hospital Course: Ms. Juarez is a 36-year-old obese female patient with a history of hypertension and tobacco use who presented to the ED on 08/05 with complaints of chest pain. Patient was having chest pain for the past few days however she began to develop shortness of breath in association with chest pain. Patient reportedly was a mediastinal sharp pain that radiated to her back and both arms. Patient also stated that she had associated shortness of breath and nausea with the pain. Patient denies ever feeling this type of pain before. Chest x-ray and EKG in the ED were normal. Patient admitted that her father from [facility] at the age of 26. Patient was admitted to the hospitalist service for further evaluation. Cardiology was consulted to evaluate patient. Patient had negative cardiac biomarkers. Patient was kept n.p.o. for a cardiac stress test. Cardiac stress test did not reveal any reversible ischemia and was low risk for future cardiac events' per cardiology note. The patient will need to follow-up with her primary care provider in 1-2 weeks with cardiology on an as-needed basis. Medicine recommendations were also made by cardiology gabapentin 100 mg 3 times a day 1 month, tramadol 50 mg twice daily 1 week and Tylenol 325 mg twice daily for 1 week. Pt reported mild nausea but reports was able to tolerate oral intake and was having regular bowel movements without abdominal pain. No fever. Will need outpatient RUQ U/S outpatient to evaluate for GB disease. Today the patient's labs and vital signs are stable and she will be dc'd home. Specialty Discharge - Follow Up or Referrals Follow up with: md, pcp [Other] - 2 Weeks (needs RUQ U/S and GB workup for nausea and F/U Hospital visit) Discharge Plan - Discharge Data Disposition: Disch To Home/Self Care - Discharge Medications New Aspirin EC Tab 325 mg PO DAILY tablet Gabapentin Cap/Tab [Neurontin Cap/Tab] 100 mg PO TID #90 capsule [place] 3 Acid Ethyl Esters [Lovaza] 1 gm PO BID #60 capsule traMADol TAB [Ultram] 50 mg PO BID #14 tablet Acetaminophen Tab [Tylenol Tab] 325 mg PO BID #12 tablet Continue Metoprolol Succinate Xl [Toprol Xl] 25 mg PO DAILY #30 tablet Amlodipine/Valsartan [Exforge 10-320 mg Tablet] 1 each PO QAM #30 tablet - Follow Up or Referral Follow Up: md, pcp [Other] - 2 Weeks (needs RUQ U/S and GB workup for nausea and F/U Hospital visit) - Forms/Instructions Instructions: Chest Pain (DC) Exam - Constitutional Vitals: Period Temp Pulse Resp BP Sys/Gonzales Pulse Ox Last 24 Hr 96.0 F-98.7 F 73-89 18-20 123-156/73-90 [id number] Discharge Results Procedures and tests throughout hospitalization: Pending Orders 08/08/16 04:00 BMP w/ Mg [Basic Metabolic Panel w/Mg] IN AM CBC [Comp Blood Count Auto Diff] IN AM Labs on day of discharge: Labs from last 24 hours 08/07/16 08/07/16 04:27 04:27 WBC 9.7 RBC 4.40 Hgb 12.8 Hct 39.2 MCV 89.1 MCH 29 MCHC 32.7 RDW 15.1 Plt Count 301 MPV 10.4 Neut % (Auto) 51.6 Lymph % (Auto) 34.9 [place] % (Auto) 9.5 Eos % (Auto) 2.9 Baso % (Auto) 0.7 Neut # (Auto) 5.0 Lymph # (Auto) 3.4 [place] # (Auto) 0.9 H Eos # (Auto) 0.3 Baso # (Auto) 0.1 Immature Gran % 0.4 Nucleated RBC % 0.0 Immature Gran # 0.04 Nucleated RBCs # 0.00 Sodium 144 Potassium 4.2 Chloride 107 Carbon Dioxide 28 Anion Gap 13.2 BUN 15 Creatinine 0.60 GFR Calculation 163 BUN/Creatinine Ratio 25.00 H Glucose 126 H Calculated Osmolality 288.8 Calcium 8.7 Magnesium 2.0 DS: Provider Date of admission: 08/05/16 23:57 Primary care physician: . No PCP Attending physician on admission: Enrike Mcintosh MD Consults: 08/06/16 00:25 Consult to Physician [CONS] Routine Comment: Consulting Provider: Cardiology - [facility] Consult to Specialist Group: Cardiology When should Consulting Provider be notified: In am Person Notified: MARLA Date Notified: 08/06/16 Time Notified: 07:55 Discharging clinician: Paul Rodriguez NP <Ana Roblero - Last Filed: 08/07/16 10:46> Hospital Course - Time spent with patient Time with patient DS: Greater than 30 minutes (35 minutes) Diagnosis - Discharge Diagnosis (1) Chest wall pain Status: Acute (2) Hypertension Status: Chronic (3) Hypertriglyceridemia Status: Chronic (4) Family history of premature coronary artery disease Status: Chronic (5) Former smoker Status: Chronic (6) Uncontrolled hypertension Status: Chronic (7) Leukocytosis Status: Resolved Discharge Plan - Discharge Data Condition at Discharge: Stable Discharge Diet: heart healthy Activity: resume usual activities as tolerated, other (no tobacco or alcohol use ) Contact your physician if you experience:: fever over 101, Difficulty voiding, Redness or swelling, Nausea/Vomiting, Shortness of breath, Bleeding, pain uncontrolled by pain medications - Forms/Instructions Additional Discharge Instructions: Schedule RUQ U/S in next week with results to PCP re: nausea. Exam - Constitutional Exam: see progress note from today's physical exam
== END 2016-08-07 11:45 | disposition home or self-care (01) ==
LOC: N.ED 20:54 → N.EDINP 20:54 → SUATTDRO 23:57 → N.TELEN 08-06 00:33
PROVIDERS: ADMIT Internal Medicine; ATTEND Pediatrics

== ENCOUNTER 2017-02-26 08:30 | Observation (INO) ==
[2017-02-26] MEDS ORDERED: ASPIRIN 325 MG TABLET PO STA (08:57)
[2017-02-26] MEDS ORDERED: METOPROLOL TARTRATE 5 MG/5 ML VIAL IV STA ×2 (08:57→09:42)
[2017-02-26] MEDS ORDERED: ASPIRIN 325 MG TABLET ONE (09:14)
[2017-02-26] MEDS ORDERED: METOPROLOL TARTRATE 5 MG/5 ML VIAL IV ONE ×2 (09:14→09:49)
[2017-02-26 09:24] LABS: Basophils # 0.1 10*3/uL (0.0-0.2); Basophils % 0.6 % (0.0-0.8); Eosinophils # 0.3 10*3/uL (0.0-0.87); Eosinophils % 2.5 % (0.00-10.9); Hematocrit 41.5 VOL% (35.7-47.0); Hemoglobin 13.4 GM/DL (12.0-16.0); Immature Granulocytes % 0.5 %; Immature Granulocytes Absolute 0.06 #; Lymphocytes # 3.3 10*3/uL (1.4-4.0); Lymphocytes % 26.4 % (21.3-54.2); Mean Corpuscular HGB Conc 32.3 GM/DL (32-36); Mean Corpuscular Hemoglobin 29 PG (27-34); Mean Corpuscular Volume 90.4 FL (87-102); Mean Platelet Volume 9.8 FL (9.6-12.0); Monocytes # 1.1 10*3/uL (0.11-0.8); Monocytes % 8.7 % (1.7-12.7); Neutrophils # 7.6 10*3/uL (1.4-7.4); Neutrophils % 61.3 % (38.7-73.9); Platelet Count 320 T/CUMM (130-400); Red Blood Count 4.59 MC/CUMM (3.8-5.5); Red Cell Distribution Width 15.1 % (9.3-17.3); White Blood Count 12.4 T/CUMM (4-12)
[2017-02-26 09:28] LABS: Apearance,Urine Slightly Hazy (Clear); Bacteria,Urine Occasional /HPF (Few); Bilirubin,Urine Negative (Negative); Blood, Urine Large mg/dL (Negative); Glucose,Urine (UA) Negative (Negative); Ketones,Urine Negative (Negative); Mucus,Urine Occasional /LPF (Occasional); Nitrite,Urine Negative (Negative); Protein,Urine Negative; RBC,Urine 1 /HPF (0-4); Squamous Epithelial Cell,Urine Occasional /HPF (0-10); Urine Color Yellow (Yellow); Urine Specific Gravity 1.012 (1.001-1.035); Urine Urobilinogen < 2.0 EU/DL (0.2-1.0); WBC,Urine 1 /HPF (0-6)
[2017-02-26 09:32] LABS: INR 0.9; PT Patient Result 9.9 SECS
[2017-02-26 09:37] LABS: Barbiturates Screen,Urine Negative (Negative); Benzodiazepines Screen,Urine Negative (Negative); Cannabinoid Screen,Urine Negative (Negative); Opiate Screen,Urine Negative (Negative); Phencyclidine Screen,Urine Negative (Negative)
[2017-02-26] MEDS ORDERED: ACETAMINOPHEN 500 MG TABLET PO STA (09:42)
[2017-02-26 09:55] LABS: Alanine Aminotransferase 18 U/L (13-56); Albumin 3.5 G/DL (3.4-5.0); Alkaline Phosphatase 71 U/L (45-117); Aspartate Amino Transferase 11 U/L (0-37); Bilirubin,Total < 0.39 MG/DL (0.2-1.0); Blood Urea Nitrogen 8 MG/DL (7-18); Glucose 82 MG/DL (74-106); Osmolality,Calculated 275.4 MOS/KG (273-304); Potassium 4.2 MMOL/L (3.5-5.1); Sodium 140 MMOL/L (136-145); Total Protein 7.1 G/DL (6.4-8.3)
[2017-02-26] MEDS ORDERED: ACETAMINOPHEN 500 MG TABLET ONE (10:05)
[2017-02-26] MEDS ORDERED: KETOROLAC 30 MG/1 ML VIAL ONE (10:38)
[2017-02-26] MEDS ORDERED: KETOROLAC 30 MG/1 ML VIAL IV STA (10:39)
[2017-02-26] MEDS ORDERED: ONDANSETRON 4 MG/2 ML VIAL IV PRN (11:34)
[2017-02-26] MEDS ORDERED: ACETAMINOPHEN 325 MG TABLET PO PRN (11:34)
[2017-02-26] MEDS ORDERED: BISACODYL 5 MG TABLET PO PRN (11:34)
[2017-02-26] MEDS ORDERED: ALUM/MAG/SIMETH/LIDO VISC 1:1 30 ML BOTTLE PO PRN (11:34)
[2017-02-26] MEDS ORDERED: amLODIPine 5 MG TABLET PO STA (11:38)
[2017-02-26 11:59] LABS: Risk Ratio 4.23; VLDL CHOLESTEROL 20.4 MG/DL
[2017-02-26] MEDS: ENOXAPARIN 40 MG/0.4 ML SYRINGE SUBCUT SCH (15:25)
[2017-02-26] MEDS: FAMOTIDINE 20 MG TABLET PO SCH (20:38)
[2017-02-26] MEDS: NITROGLYCERIN SL 0.4 MG TABLET SL PRN ×2 (20:39→20:52)
[2017-02-26] MEDS ORDERED: ZALEPLON 5 MG CAPSULE PO PRN (21:00)
[2017-02-26] MEDS ORDERED: ROSUVASTATIN 20 MG TABLET PO SCH (21:00)
[2017-02-27 04:52] LABS: Basophils # 0.1 10*3/uL (0.0-0.2); Basophils % 0.7 % (0.0-0.8); Eosinophils # 0.3 10*3/uL (0.0-0.87); Eosinophils % 2.7 % (0.00-10.9); Hemoglobin 13.6 GM/DL (12.0-16.0); Immature Granulocytes % 0.4 %; Immature Granulocytes Absolute 0.04 #; Lymphocytes % 37.7 % (21.3-54.2); Mean Corpuscular HGB Conc 33.2 GM/DL (32-36); Mean Corpuscular Hemoglobin 30 PG (27-34); Mean Corpuscular Volume 89.1 FL (87-102); Monocytes % 9.3 % (1.7-12.7); Neutrophils # 5.3 10*3/uL (1.4-7.4); Neutrophils % 49.2 % (38.7-73.9); Platelet Count 337 T/CUMM (130-400); Red Cell Distribution Width 15.1 % (9.3-17.3); White Blood Count 10.7 T/CUMM (4-12)
[2017-02-27 05:25] LABS: Albumin 3.1 G/DL (3.4-5.0); Bilirubin,Total 0.8 MG/DL (0.2-1.0); Calcium 9.1 MG/DL (8.5-10.1); Osmolality,Calculated 275.5 MOS/KG (273-304); Potassium 4.6 MMOL/L (3.5-5.1); Total Protein 6.6 G/DL (6.4-8.3)
[2017-02-27 08:17] VITALS: BP 138/91
[2017-02-27] MEDS ORDERED: VALSARTAN 160 MG TABLET PO SCH (09:00)
[2017-02-27] MEDS ORDERED: ATENOLOL 50 MG TABLET PO SCH (09:00)
[2017-02-27] MEDS ORDERED: ASPIRIN EC 81 MG TABLET PO SCH (09:00)
[2017-02-27] MEDS: FAMOTIDINE 20 MG TABLET PO SCH (09:38)
[2017-02-27] MEDS: ENOXAPARIN 40 MG/0.4 ML SYRINGE SUBCUT SCH (11:06)
== END 2017-02-27 11:45 | disposition home or self-care (01) ==
LOC: N.EDINP 08:30 → N.ED 08:30 → N.TELEN 14:52
PROVIDERS: ADMIT Internal Medicine; ATTEND Internal Medicine

== ENCOUNTER 2017-11-30 19:01 | Observation (INO) ==
[2017-11-30 19:42] LABS: Basophils # 0.1 10*3/uL (0.0-0.2); Basophils % 0.7 % (0.0-0.8); Eosinophils # 0.3 10*3/uL (0.0-0.87); Eosinophils % 1.9 % (0.00-10.9); Hematocrit 40.9 VOL% (35.7-47.0); Hemoglobin 13.8 GM/DL (12.0-16.0); Immature Granulocytes % 0.4 %; Immature Granulocytes Absolute 0.05 #; Lymphocytes # 3.8 10*3/uL (1.4-4.0); Lymphocytes % 28.2 % (21.3-54.2); Mean Corpuscular HGB Conc 33.7 GM/DL (32-36); Mean Corpuscular Hemoglobin 30 PG (27-34); Mean Corpuscular Volume 89.3 FL (87-102); Monocytes # 1.3 10*3/uL (0.11-0.8); Monocytes % 9.6 % (1.7-12.7); Neutrophils % 59.2 % (38.7-73.9); Platelet Count 305 T/CUMM (130-400); Red Blood Count 4.58 MC/CUMM (3.8-5.5); Red Cell Distribution Width 14.7 % (9.3-17.3); White Blood Count 13.5 T/CUMM (4-12)
[2017-11-30 20:05] LABS: Alanine Aminotransferase 20 U/L (13-56); Albumin 3.3 G/DL (3.4-5.0); Alkaline Phosphatase 62 U/L (45-117); Aspartate Amino Transferase 17 U/L (0-37); Bilirubin,Total < 0.39 MG/DL (0.2-1.0); Blood Urea Nitrogen 10 MG/DL (7-18); Calcium 8.7 MG/DL (8.5-10.1); Glucose 76 MG/DL (74-106); Osmolality,Calculated 280.1 MOS/KG (273-304); Potassium 3.2 MMOL/L (3.5-5.1); Sodium 142 MMOL/L (136-145); Total Protein 7.2 G/DL (6.4-8.3)
[2017-11-30 20:14] LABS: INR 0.9; Partial Thromboplastin Time 27.6 SECS (0-40)
[2017-11-30] MEDS ORDERED: MAGNESIUM SULF RIDER 2 GM in PREMIX 1 EACH IV STA (21:35)
[2017-11-30] MEDS ORDERED: POTASSIUM CHLORIDE 20 MEQ TABLET PO STA (21:35)
[2017-11-30 22:38] LABS: Apearance,Urine Slightly Hazy (Clear); Bilirubin,Urine Negative (Negative); Blood, Urine Negative (Negative); Glucose,Urine (UA) Negative (Negative); Ketones,Urine Negative (Negative); Nitrite,Urine Negative (Negative); Protein,Urine Negative; RBC,Urine <1 /HPF (0-4); Squamous Epithelial Cell,Urine Few /HPF (0-10); Urine Color Yellow (Yellow); Urine Specific Gravity 1.009 (1.001-1.035); Urine Urobilinogen < 2.0 EU/DL (0.2-1.0); WBC,Urine 1 /HPF (0-6)
[2017-11-30 22:47] LABS: Barbiturates Screen,Urine Negative (Negative); Benzodiazepines Screen,Urine Negative (Negative); Cannabinoid Screen,Urine Negative (Negative); Opiate Screen,Urine Negative (Negative); Phencyclidine Screen,Urine Negative (Negative)
[2017-11-30] MEDS ORDERED: hydrALAZINE 20 MG/1 ML VIAL IV STA (23:39)
[2017-11-30] MEDS ORDERED: ONDANSETRON 4 MG/2 ML VIAL IV STA (23:58)
[2017-12-01] MEDS ORDERED: MORPHINE 4 MG/1 ML VIAL ONE (00:19)
[2017-12-01] MEDS ORDERED: NITROGLYCERIN 2% OINT 1 INCH/GM PACK TOP STA (00:21)
[2017-12-01] MEDS ORDERED: ASPIRIN EC 325 MG TABLET PO STA (00:21)
[2017-12-01] MEDS ORDERED: MAGNESIUM SULF RIDER 2 GM in PREMIX 1 EACH IV PRN ×2 (01:06→13:50)
[2017-12-01] MEDS ORDERED: ACETAMINOPHEN 325 MG TABLET PO PRN (01:06)
[2017-12-01] MEDS ORDERED: MAGNESIUM SULF RIDER 4 GM in PREMIX 1 EACH IV PRN (01:06)
[2017-12-01] MEDS ORDERED: ZALEPLON 5 MG CAPSULE PO PRN (01:06)
[2017-12-01] MEDS ORDERED: MORPHINE 4 MG/1 ML VIAL IV PRN (01:06)
[2017-12-01] MEDS ORDERED: LACTULOSE 20 GM/30 ML UDCUP PO PRN (01:06)
[2017-12-01] MEDS ORDERED: hydrALAZINE 20 MG/1 ML VIAL IV PRN (01:06)
[2017-12-01] MEDS ORDERED: ONDANSETRON 4 MG/2 ML VIAL IV PRN (01:06)
[2017-12-01] MEDS ORDERED: diphenhydrAMINE CAP 25 MG CAPSULE PO PRN (01:06)
[2017-12-01 04:45] LABS: Basophils # 0.1 10*3/uL (0.0-0.2); Basophils % 0.8 % (0.0-0.8); Eosinophils # 0.3 10*3/uL (0.0-0.87); Eosinophils % 2.4 % (0.00-10.9); Hematocrit 40.2 VOL% (35.7-47.0); Hemoglobin 13.3 GM/DL (12.0-16.0); Immature Granulocytes % 0.4 %; Immature Granulocytes Absolute 0.05 #; Lymphocytes # 4.7 10*3/uL (1.4-4.0); Lymphocytes % 36.6 % (21.3-54.2); Mean Corpuscular HGB Conc 33.1 GM/DL (32-36); Mean Corpuscular Hemoglobin 30 PG (27-34); Mean Corpuscular Volume 89.7 FL (87-102); Mean Platelet Volume 10.6 FL (9.6-12.0); Monocytes # 1.3 10*3/uL (0.11-0.8); Monocytes % 9.8 % (1.7-12.7); Neutrophils # 6.4 10*3/uL (1.4-7.4); Platelet Count 291 T/CUMM (130-400); Red Blood Count 4.48 MC/CUMM (3.8-5.5); Red Cell Distribution Width 14.8 % (9.3-17.3); White Blood Count 12.9 T/CUMM (4-12)
[2017-12-01 05:20] LABS: Troponin I < 0.015 NG/ML (0.00-0.045)
[2017-12-01 05:26] LABS: Albumin 3.1 G/DL (3.4-5.0); Bilirubin,Total 0.6 MG/DL (0.2-1.0); Calcium 8.4 MG/DL (8.5-10.1); Osmolality,Calculated 279.1 MOS/KG (273-304); Potassium 3.6 MMOL/L (3.5-5.1); Risk Ratio 4.38; Thyroid Stimulating Hormone 1.99 uIU/ml (0.358-3.74); Total Protein 6.8 G/DL (6.4-8.3); VLDL CHOLESTEROL 31.6 MG/DL
[2017-12-01] MEDS ORDERED: DIAZEPAM 5 MG TABLET PO ONE (13:50)
[2017-12-01] MEDS ORDERED: ASPIRIN 325 MG TABLET PO ONE (13:50)
[2017-12-01] MEDS ORDERED: POTASSIUM CHLORIDE RIDER 10 MEQ in PREMIX 1 EACH IV PRN (13:50)
[2017-12-01] MEDS ORDERED: diphenhydrAMINE CAP 25 MG CAPSULE PO ONE (13:50)
[2017-12-01 13:54] LABS: Troponin I < 0.015 NG/ML (0.00-0.045)
[2017-12-01] MEDS ORDERED: SODIUM CHLORIDE 0.45% 1,000 ML IV SCH (14:00)
[2017-12-01] MEDS ORDERED: LIDOCAINE 1% 20 ML VIAL ONE (14:02)
[2017-12-01] MEDS: ENOXAPARIN 40 MG/0.4 ML SYRINGE SUBCUT SCH (14:07)
[2017-12-01] MEDS: amLODIPine 5 MG TABLET PO SCH (14:07)
[2017-12-01] MEDS ORDERED: fentaNYL 100 MCG/2 ML VIAL ONE (14:21)
[2017-12-01] MEDS ORDERED: MIDAZOLAM 2 MG/2 ML VIAL ONE ×2 (14:21→14:35)
[2017-12-01] MEDS ORDERED: NIFEdipine 10 MG CAPSULE PO ONE (14:39)
[2017-12-01] MEDS ORDERED: SERTRALINE 25 MG TABLET PO ONE (15:45)
[2017-12-01] MEDS: LOSARTAN 50 MG TABLET PO SCH ×2 (16:10→20:40)
[2017-12-01] MEDS: PANTOPRAZOLE 40 MG TABLET PO SCH (16:10)
[2017-12-01] MEDS: GABAPENTIN 100 MG CAPSULE PO SCH ×2 (16:10→20:40)
[2017-12-01] MEDS: ACETAMINOPHEN 325 MG TABLET PO SCH ×2 (16:10→20:40)
[2017-12-01] MEDS: CARVEDILOL 12.5 MG TABLET PO SCH ×2 (16:10→20:40)
[2017-12-01] MEDS: ASPIRIN EC 81 MG TABLET PO SCH (17:53)
[2017-12-01] MEDS: hydroCHLOROthiazide 12.5 MG CAPSULE PO SCH (20:40)
[2017-12-01] MEDS ORDERED: ROSUVASTATIN 10 MG TABLET PO SCH (21:00)
[2017-12-01] MEDS ORDERED: FAMOTIDINE 20 MG TABLET PO SCH (21:00)
[2017-12-01] MEDS ORDERED: SERTRALINE 25 MG TABLET PO SCH (21:00)
[2017-12-02 06:05] LABS: Basophils # 0.1 10*3/uL (0.0-0.2); Basophils % 0.6 % (0.0-0.8); Eosinophils # 0.3 10*3/uL (0.0-0.87); Eosinophils % 2.7 % (0.00-10.9); Hematocrit 42.6 VOL% (35.7-47.0); Hemoglobin 14.2 GM/DL (12.0-16.0); Immature Granulocytes % 0.5 %; Immature Granulocytes Absolute 0.06 #; Lymphocytes # 3.8 10*3/uL (1.4-4.0); Lymphocytes % 30.1 % (21.3-54.2); Mean Corpuscular HGB Conc 33.3 GM/DL (32-36); Mean Corpuscular Hemoglobin 29 PG (27-34); Mean Corpuscular Volume 88.2 FL (87-102); Mean Platelet Volume 10.4 FL (9.6-12.0); Monocytes # 1.2 10*3/uL (0.11-0.8); Monocytes % 9.4 % (1.7-12.7); Neutrophils # 7.2 10*3/uL (1.4-7.4); Neutrophils % 56.7 % (38.7-73.9); Platelet Count 347 T/CUMM (130-400); Red Blood Count 4.83 MC/CUMM (3.8-5.5); Red Cell Distribution Width 14.9 % (9.3-17.3); White Blood Count 12.6 T/CUMM (4-12)
[2017-12-02 06:33] LABS: Calcium 8.3 MG/DL (8.5-10.1); Osmolality,Calculated 276.5 MOS/KG (273-304); Potassium 3.8 MMOL/L (3.5-5.1)
[2017-12-02] MEDS: ASPIRIN EC 81 MG TABLET PO SCH (08:53)
[2017-12-02] MEDS: CARVEDILOL 12.5 MG TABLET PO SCH (08:53)
[2017-12-02] MEDS: GABAPENTIN 100 MG CAPSULE PO SCH (08:53)
[2017-12-02] MEDS: PANTOPRAZOLE 40 MG TABLET PO SCH (08:53)
[2017-12-02] MEDS: amLODIPine 5 MG TABLET PO SCH (08:54)
[2017-12-02] MEDS: hydroCHLOROthiazide 12.5 MG CAPSULE PO SCH (08:54)
[2017-12-02] MEDS: ACETAMINOPHEN 325 MG TABLET PO SCH (08:54)
[2017-12-02] MEDS: LOSARTAN 50 MG TABLET PO SCH (08:57)
[2017-12-02] MEDS: ENOXAPARIN 40 MG/0.4 ML SYRINGE SUBCUT SCH (08:58)
[2017-12-02 11:59] VITALS: BP 143/82
[2017-12-02] MEDS ORDERED: INFLUENZA VIRUS VACCINE 0.5 ML SYRINGE IM ONE (13:21)
== END 2017-12-02 14:16 | disposition home or self-care (01) ==
LOC: N.ED 19:01 → N.EDINP 19:01 → N.TELES 12-01 02:06
PROVIDERS: ADMIT Internal Medicine Geriatric Medicine; ATTEND Internal Medicine Geriatric Medicine
PROC: CLCCHCL (ICD-10-PCS; 2017-12-01 14:15)

== ENCOUNTER 2019-02-13 06:55 | Inpatient (IN) ==
[2019-02-13] MEDS ORDERED: FUROSEMIDE 40 MG/4 ML VIAL IV STA (07:21)
[2019-02-13] MEDS ORDERED: methylPREDNISolone SOD SUC 125 MG/2 ML VIAL IV STA (07:22)
[2019-02-13] MEDS ORDERED: ALBUTEROL 2.5 MG/3 ML NEB RESP TX STA ×2 (07:22→11:33)
[2019-02-13 07:32] LABS: Basophils # 0.1 10*3/uL (0.0-0.2); Basophils % 0.7 % (0.0-0.8); Eosinophils # 0.3 10*3/uL (0.0-0.87); Eosinophils % 2.1 % (0.00-10.9); Hematocrit 42.1 VOL% (35.7-47.0); Hemoglobin 13.6 GM/DL (12.0-16.0); Immature Granulocytes % 0.7 %; Immature Granulocytes Absolute 0.08 #; Lymphocytes # 2.7 10*3/uL (1.4-4.0); Lymphocytes % 22.2 % (21.3-54.2); Mean Corpuscular HGB Conc 32.3 GM/DL (32-36); Mean Corpuscular Volume 90.1 FL (87-102); Mean Platelet Volume 9.8 FL (9.6-12.0); Monocytes % 6.8 % (1.7-12.7); Neutrophils % 67.5 % (38.7-73.9); Platelet Count 335 T/CUMM (130-400); Red Blood Count 4.67 MC/CUMM (3.8-5.5); White Blood Count 12.1 T/CUMM (4-12)
[2019-02-13] MEDS ORDERED: MORPHINE 4 MG/1 ML VIAL IV STA ×2 (07:48→08:34)
[2019-02-13] MEDS ORDERED: hydrALAZINE 20 MG/1 ML VIAL IV STA (07:48)
[2019-02-13 07:58] LABS: Apearance,Urine CLEAR (Clear); Bacteria,Urine Occasional /HPF (Few); Bilirubin,Urine Negative (Negative); Blood, Urine Small mg/dL (Negative); Glucose,Urine (UA) Negative (Negative); Ketones,Urine Negative (Negative); Mucus,Urine Occasional /LPF (Occasional); Nitrite,Urine Negative (Negative); Protein,Urine 100 MG/DL; RBC,Urine 1 /HPF (0-4); Squamous Epithelial Cell,Urine Occasional /HPF (0-10); Urine Color Yellow (Yellow); Urine Specific Gravity 1.013 (1.001-1.035); Urine Urobilinogen < 2.0 EU/DL (0.2-1.0); WBC,Urine 1 /HPF (0-6)
[2019-02-13 08:05] LABS: Barbiturates Screen,Urine Negative (Negative); Benzodiazepines Screen,Urine Negative (Negative); Cannabinoid Screen,Urine Negative (Negative); Opiate Screen,Urine Negative (Negative); Phencyclidine Screen,Urine Negative (Negative)
[2019-02-13 08:11] LABS: Alanine Aminotransferase 25 U/L (13-56); Alkaline Phosphatase 82 U/L (45-117); Aspartate Amino Transferase 24 U/L (0-37); Bilirubin,Total < 0.39 MG/DL (0.2-1.0); Blood Urea Nitrogen 8 MG/DL (7-18); Calcium 8.1 MG/DL (8.5-10.1); Estimated Glom Filtration Rate 132 ML/MIN; Glucose 182 MG/DL (74-106); Osmolality,Calculated 279.5 MOS/KG (273-304); Total Protein 7.3 G/DL (6.4-8.3)
[2019-02-13] MEDS ORDERED: MAGNESIUM SULF RIDER 2 GM in PREMIX 1 EACH IV STA (08:42)
[2019-02-13] MEDS ORDERED: DEXTROSE 50% 25 GM/50 ML VIAL IV PRN (11:28)
[2019-02-13] MEDS ORDERED: GLUCAGON 1 MG VIAL IM PRN (11:28)
[2019-02-13] MEDS ORDERED: ALBUTEROL/IPRATROPIUM 3 ML NEB RESP TX STA (11:33)
[2019-02-13] MEDS ORDERED: ALBUTEROL 2.5 MG/3 ML NEB RESP TX PRN (11:34)
[2019-02-13] MEDS ORDERED: DOCUSATE SODIUM 100 MG CAPSULE PO PRN (11:34)
[2019-02-13] MEDS ORDERED: hydrALAZINE 20 MG/1 ML VIAL IV PRN (11:34)
[2019-02-13] MEDS ORDERED: ONDANSETRON 4 MG/2 ML VIAL IV PRN (11:34)
[2019-02-13] MEDS ORDERED: traZODone 50 MG TABLET PO PRN (11:34)
[2019-02-13] MEDS ORDERED: amLODIPine 2.5 MG TABLET PO SCH (12:00)
[2019-02-13] MEDS: LISINOPRIL 20 MG TABLET PO SCH ×2 (14:55→20:10)
[2019-02-13] MEDS: methylPREDNISolone SOD SUC 40 MG/1 ML VIAL IV SCH ×2 (14:55→21:19)
[2019-02-13] MEDS: ACETAMINOPHEN 325 MG TABLET PO PRN ×2 (14:56→21:19)
[2019-02-13] MEDS: hydroCHLOROthiazide 25 MG TABLET PO SCH (14:56)
[2019-02-13] MEDS: ENOXAPARIN 40 MG/0.4 ML SYRINGE SUBCUT SCH (14:57)
[2019-02-13] MEDS: ASPIRIN EC 81 MG TABLET PO SCH (14:57)
[2019-02-13] MEDS: INSULIN LISPRO 100 UNIT/ML SUBCUT SCH ×2 (17:41→20:10)
[2019-02-13] MEDS: BUDESONIDE/FORMOTEROL 160-4.5 INHALER 6 GM INH SCH (20:10)
[2019-02-13] MEDS: DOXYCYCLINE HYCLATE 100 MG CAPSULE PO SCH (20:10)
[2019-02-14] MEDS: guaiFENesin/DM ER 600-30 MG TABLET PO PRN ×2 (00:02→13:50)
[2019-02-14] MEDS: ALBUTEROL 2.5 MG/3 ML NEB RESP TX SCH ×5 (00:33→20:14)
[2019-02-14 04:54] LABS: Basophils % 0.1 % (0.0-0.8); Hematocrit 41.5 VOL% (35.7-47.0); Hemoglobin 13.4 GM/DL (12.0-16.0); Immature Granulocytes % 1.6 %; Lymphocytes # 1.6 10*3/uL (1.4-4.0); Lymphocytes % 8.6 % (21.3-54.2); Mean Corpuscular HGB Conc 32.3 GM/DL (32-36); Mean Corpuscular Volume 89.6 FL (87-102); Mean Platelet Volume 10.1 FL (9.6-12.0); Monocytes % 3.8 % (1.7-12.7); Neutrophils % 85.9 % (38.7-73.9); Platelet Count 389 T/CUMM (130-400); Red Blood Count 4.63 MC/CUMM (3.8-5.5); Red Cell Distribution Width 15.3 % (9.3-17.3); White Blood Count 18.3 T/CUMM (4-12)
[2019-02-14 05:02] LABS: Calcium 9.2 MG/DL (8.5-10.1); Osmolality,Calculated 284.8 MOS/KG (273-304)
[2019-02-14] MEDS: methylPREDNISolone SOD SUC 40 MG/1 ML VIAL IV SCH ×3 (06:05→17:07)
[2019-02-14] MEDS: INSULIN LISPRO 100 UNIT/ML SUBCUT SCH (07:58)
[2019-02-14] MEDS: hydroCHLOROthiazide 25 MG TABLET PO SCH (08:00)
[2019-02-14] MEDS: amLODIPine 2.5 MG TABLET PO SCH (08:00)
[2019-02-14] MEDS: ASPIRIN EC 81 MG TABLET PO SCH (08:00)
[2019-02-14] MEDS: DOXYCYCLINE HYCLATE 100 MG CAPSULE PO SCH ×2 (08:01→21:34)
[2019-02-14] MEDS: LISINOPRIL 20 MG TABLET PO SCH ×2 (08:01→21:34)
[2019-02-14] MEDS: BUDESONIDE/FORMOTEROL 160-4.5 INHALER 6 GM INH SCH ×2 (08:01→21:41)
[2019-02-14] MEDS ORDERED: DEXTROSE 10% 25 GM/250 ML BAG IV PRN (10:08)
[2019-02-14] MEDS ORDERED: GLUCAGON 1 MG VIAL IM PRN (10:08)
[2019-02-14] MEDS: MONTELUKAST 10 MG TABLET PO SCH (11:39)
[2019-02-14] MEDS: ENOXAPARIN 40 MG/0.4 ML SYRINGE SUBCUT SCH (11:46)
[2019-02-14] MEDS: INSULIN REGULAR 100 UNIT/ML SUBCUT SCH ×3 (13:50→21:36)
[2019-02-14] MEDS: ACETAMINOPHEN 325 MG TABLET PO PRN (17:07)
[2019-02-14] MEDS: ALUMINUM/MAGNES/SIMETH MAX STR 30 ML UDCUP PO PRN (21:36)
[2019-02-15] MEDS: ALBUTEROL 2.5 MG/3 ML NEB RESP TX SCH ×4 (00:10→19:50)
[2019-02-15] MEDS: methylPREDNISolone SOD SUC 40 MG/1 ML VIAL IV SCH ×3 (01:58→16:05)
[2019-02-15] MEDS: ENOXAPARIN 40 MG/0.4 ML SYRINGE SUBCUT SCH (08:12)
[2019-02-15] MEDS: INSULIN REGULAR 100 UNIT/ML SUBCUT SCH ×4 (08:12→20:41)
[2019-02-15] MEDS: LISINOPRIL 20 MG TABLET PO SCH ×2 (08:13→20:41)
[2019-02-15] MEDS: amLODIPine 2.5 MG TABLET PO SCH (08:13)
[2019-02-15] MEDS: MONTELUKAST 10 MG TABLET PO SCH (08:13)
[2019-02-15] MEDS: DOXYCYCLINE HYCLATE 100 MG CAPSULE PO SCH ×2 (08:14→20:41)
[2019-02-15] MEDS: hydroCHLOROthiazide 25 MG TABLET PO SCH (08:14)
[2019-02-15] MEDS: PANTOPRAZOLE 40 MG TABLET PO SCH (08:14)
[2019-02-15] MEDS: ASPIRIN EC 81 MG TABLET PO SCH (08:14)
[2019-02-15] MEDS: ALUMINUM/MAGNES/SIMETH MAX STR 30 ML UDCUP PO PRN (08:14)
[2019-02-15] MEDS: BUDESONIDE/FORMOTEROL 160-4.5 INHALER 6 GM INH SCH ×2 (09:36→21:38)
[2019-02-15] MEDS: ACETAMINOPHEN 325 MG TABLET PO SCH ×2 (16:06→21:38)
[2019-02-15] MEDS: POTASSIUM CHLORIDE 20 MEQ TABLET PO PRN ×3 (18:41→23:02)
[2019-02-15] MEDS: IBUPROFEN 600 MG TABLET PO PRN (21:38)
[2019-02-16] MEDS: ALBUTEROL 2.5 MG/3 ML NEB RESP TX SCH ×6 (00:07→23:52)
[2019-02-16] MEDS: ACETAMINOPHEN 325 MG TABLET PO SCH ×2 (00:34→11:23)
[2019-02-16] MEDS: methylPREDNISolone SOD SUC 40 MG/1 ML VIAL IV SCH ×4 (00:40→17:08)
[2019-02-16] MEDS: IBUPROFEN 600 MG TABLET PO PRN (04:46)
[2019-02-16 05:34] LABS: Basophils % 0.2 % (0.0-0.8); Hematocrit 41.6 VOL% (35.7-47.0); Hemoglobin 13.3 GM/DL (12.0-16.0); Immature Granulocytes % 1.9 %; Immature Granulocytes Absolute 0.36 #; Lymphocytes # 1.6 10*3/uL (1.4-4.0); Lymphocytes % 8.4 % (21.3-54.2); Mean Corpuscular Volume 90.2 FL (87-102); Mean Platelet Volume 10.1 FL (9.6-12.0); Monocytes % 4.8 % (1.7-12.7); Neutrophils % 84.7 % (38.7-73.9); Platelet Count 376 T/CUMM (130-400); Red Blood Count 4.61 MC/CUMM (3.8-5.5); Red Cell Distribution Width 15.5 % (9.3-17.3); White Blood Count 18.9 T/CUMM (4-12)
[2019-02-16 05:41] LABS: Calcium 8.8 MG/DL (8.5-10.1); Osmolality,Calculated 289.8 MOS/KG (273-304)
[2019-02-16] MEDS: ENOXAPARIN 40 MG/0.4 ML SYRINGE SUBCUT SCH (09:27)
[2019-02-16] MEDS: hydroCHLOROthiazide 25 MG TABLET PO SCH (09:28)
[2019-02-16] MEDS: INSULIN REGULAR 100 UNIT/ML SUBCUT SCH ×4 (09:28→21:24)
[2019-02-16] MEDS: LISINOPRIL 20 MG TABLET PO SCH ×2 (09:29→21:23)
[2019-02-16] MEDS: ASPIRIN EC 81 MG TABLET PO SCH (09:30)
[2019-02-16] MEDS: DOXYCYCLINE HYCLATE 100 MG CAPSULE PO SCH ×2 (09:30→21:23)
[2019-02-16] MEDS: PANTOPRAZOLE 40 MG TABLET PO SCH (09:30)
[2019-02-16] MEDS: MONTELUKAST 10 MG TABLET PO SCH (09:30)
[2019-02-16] MEDS: amLODIPine 2.5 MG TABLET PO SCH (09:30)
[2019-02-16] MEDS: BUDESONIDE/FORMOTEROL 160-4.5 INHALER 6 GM INH SCH ×2 (11:21→21:34)
[2019-02-17] MEDS: methylPREDNISolone SOD SUC 40 MG/1 ML VIAL IV SCH ×2 (01:39→09:30)
[2019-02-17] MEDS: ALBUTEROL 2.5 MG/3 ML NEB RESP TX SCH ×2 (08:18→12:48)
[2019-02-17] MEDS ORDERED: amLODIPine 10 MG TABLET PO SCH (09:00)
[2019-02-17] MEDS: DOXYCYCLINE HYCLATE 100 MG CAPSULE PO SCH (09:24)
[2019-02-17] MEDS: MONTELUKAST 10 MG TABLET PO SCH (09:24)
[2019-02-17] MEDS: hydroCHLOROthiazide 25 MG TABLET PO SCH (09:24)
[2019-02-17] MEDS: LISINOPRIL 20 MG TABLET PO SCH (09:24)
[2019-02-17] MEDS: ASPIRIN EC 81 MG TABLET PO SCH (09:25)
[2019-02-17] MEDS: ENOXAPARIN 40 MG/0.4 ML SYRINGE SUBCUT SCH (09:25)
[2019-02-17] MEDS: PANTOPRAZOLE 40 MG TABLET PO SCH (09:25)
[2019-02-17] MEDS: INSULIN REGULAR 100 UNIT/ML SUBCUT SCH ×2 (09:28→11:44)
[2019-02-17] MEDS: BUDESONIDE/FORMOTEROL 160-4.5 INHALER 6 GM INH SCH (09:31)
[2019-02-17 11:39] VITALS: BP 159/92
[2019-02-17] MEDS: IBUPROFEN 600 MG TABLET PO PRN (11:51)
== END 2019-02-17 13:28 | disposition home or self-care (01) | DRG 202 ==
LOC: N.EDINP 06:55 → N.ED 06:55 → SUATTDRO 11:28 → N.2W 13:15 → SUATTDRO 02-14 12:34 → N.2E 02-14 16:43
PROVIDERS: ADMIT Internal Medicine; ATTEND Family Medicine